=== PATIENT | female | born 1970 | race Caucasian/White ===

== ENCOUNTER → 2018-01-02 | Outpatient (CLI) | payer BC ==
[~2018-01-02] MED LIST: AMITRIPTYLINE H25 M2 PO; CLONAZEPAM 0.50.5 M1 PO; CYMBALTA20 MG PO; HYDROCODONE-APA1 TA1 PO; IMITREX100 MG PO; PHENERGAN 25 MG25 M1 PO; SUMATRIPTAN SU100 MG PO; ZOFRAN4 MG PO
== END ==
LOC: M.WC 07:47
DX: L05.01 Pilonidal cyst with abscess (principal); L03.818 Cellulitis of other sites; K21.9 Gastro-esophageal reflux disease without esophagitis; G43.109 Migraine with aura, not intractable, without status migrainosus; F33.1 Major depressive disorder, recurrent, moderate

== ENCOUNTER → 2018-01-09 | Outpatient (CLI) | payer BC | LOC: M.WC 02:31 | DX: L05.01 Pilonidal cyst with abscess (principal); K21.9 Gastro-esophageal reflux disease without esophagitis; G43.109 Migraine with aura, not intractable, without status migrainosus; F33.1 Major depressive disorder, recurrent, moderate ==

== ENCOUNTER → 2018-01-16 | Outpatient (CLI) | payer BC | LOC: M.WC 01:28 | DX: L05.01 Pilonidal cyst with abscess (principal); S31.030D Puncture wound without foreign body of lower back and pelvis without penetration into retroperitoneum, subsequent encounter; K21.9 Gastro-esophageal reflux disease without esophagitis; G43.109 Migraine with aura, not intractable, without status migrainosus; F33.1 Major depressive disorder, recurrent, moderate; X58.XXXD Exposure to other specified factors, subsequent encounter ==

== ENCOUNTER → 2018-01-23 | Outpatient (CLI) | payer BC | LOC: M.WC 05:00 | DX: L05.01 Pilonidal cyst with abscess (principal); K21.9 Gastro-esophageal reflux disease without esophagitis; G43.109 Migraine with aura, not intractable, without status migrainosus; F33.1 Major depressive disorder, recurrent, moderate ==

== ENCOUNTER → 2018-01-30 | Outpatient (CLI) | payer BC | LOC: M.WC 04:37 | DX: S31.030D Puncture wound without foreign body of lower back and pelvis without penetration into retroperitoneum, subsequent encounter (principal); L05.01 Pilonidal cyst with abscess; K21.9 Gastro-esophageal reflux disease without esophagitis; G43.109 Migraine with aura, not intractable, without status migrainosus; F33.1 Major depressive disorder, recurrent, moderate; X58.XXXD Exposure to other specified factors, subsequent encounter ==

== ENCOUNTER → 2018-02-06 | Outpatient (CLI) | payer BC | LOC: M.WC 00:54 | DX: L05.01 Pilonidal cyst with abscess (principal); K21.9 Gastro-esophageal reflux disease without esophagitis; G43.109 Migraine with aura, not intractable, without status migrainosus; F33.1 Major depressive disorder, recurrent, moderate ==

== ENCOUNTER → 2018-02-13 | Outpatient (CLI) | payer BC | LOC: M.WC 02:22 | DX: L05.01 Pilonidal cyst with abscess (principal); L02.818 Cutaneous abscess of other sites; K21.9 Gastro-esophageal reflux disease without esophagitis; G43.109 Migraine with aura, not intractable, without status migrainosus; F33.1 Major depressive disorder, recurrent, moderate ==

== ENCOUNTER → 2018-02-20 | Outpatient (CLI) | payer BC | LOC: M.WC 01:05 | DX: S31.010D Laceration without foreign body of lower back and pelvis without penetration into retroperitoneum, subsequent encounter (principal); L05.01 Pilonidal cyst with abscess; K21.9 Gastro-esophageal reflux disease without esophagitis; G43.109 Migraine with aura, not intractable, without status migrainosus; F33.1 Major depressive disorder, recurrent, moderate; X58.XXXD Exposure to other specified factors, subsequent encounter ==